=== PATIENT | male | born 1960 | race Caucasian/White ===

== ENCOUNTER 2024-07-09 08:52 | Emergency (ER) | payer OTHER, MEDICAID, SELFPAY ==
[2024-07-09 09:01] VITALS: BP 165/94; PULSE 101; RESP 18; TEMP 36.9; O2SAT 96; BMI 28.5
--- NOTE | 2024-07-09 09:04 | EDNOTE_ITS ---
Upper Respiratory Inf. RME/HPI General Chief Complaint: Dental/Oral/Throat Stated Complaint: throat pain, ROSS, cough Time Seen by Provider: 07/09/24 08:58 Arrival date/time: 07/09/24 08:52 64-year-old male presents emergency department complaint of sore throat, nasal congestion body aches and mild cough patient reports ongoing for last couple of days Limitations: no limitations Related Data Home Medications ?Medication ?Instructions ?Recorded ?Confirmed hydrochlorothiazide 25 mg tablet 1 tab PO DAILY 05/10/22 05/11/22 aspirin 81 mg capsule 81 mg PO DAILY 05/11/22 05/11/22 fexofenadine 180 mg tablet 1 tab PO DAILY PRN Allergy Symptoms 05/11/22 05/11/22 pantoprazole 40 mg tablet,delayed 1 tab PO DAILY 05/11/22 05/11/22 release propranolol 10 mg tablet 1 tab PO TID 05/11/22 05/11/22 simvastatin 20 mg tablet 1 tab PO DAILY 05/11/22 05/11/22 sucralfate 1 gram tablet 1 tab PO QID 05/11/22 05/11/22 Previous Rx's ?Medication ?Instructions ?Recorded potassium chloride 20 mEq oral 20 meq PO QDAY #10 ea 01/20/23 packet sulfamethoxazole 800 1 tab PO BID #14 tabs 01/14/24 mg-trimethoprim 160 mg tablet (Bactrim DS) amoxicillin 875 mg-potassium 1 tab PO BID 10 days #20 tabs 07/09/24 clavulanate 125 mg tablet ibuprofen 800 mg tablet 800 mg PO TID PRN pain #30 tabs 07/09/24 Allergies Allergy/AdvReac Type Severity Reaction Status Date / Time acetaminophen Allergy Mild Gastrointestinal Verified 05/11/22 09:40 Upset codeine Allergy Mild Gastrointestinal Verified 05/11/22 09:40 Upset Review of Systems Review of Systems Systems Reviewed: All systems reviewed, normal except as documented Constitutional Constitutional: Reports system reviewed and no additional complaints, except as documented, Denies fever(s) and Denies headache(s) Eyes Eyes: Reports system reviewed and no additional complaints, except as documented and Denies blurry vision ENT Ears, Nose, Mouth, and Throat: Reports system reviewed and no additional complaints, except as documented, Denies headache(s), Denies nasal congestion, Denies nasal discharge and Reports sore throat Cardiovascular Cardiovascular: Reports system reviewed and no additional complaints, except as documented, Denies chest pain and Denies dyspnea Respiratory Respiratory: Reports system reviewed and no additional complaints, except as documented, Denies chest congestion, Denies cough and Denies dyspnea Gastrointestinal Gastrointestinal: Reports system reviewed and no additional complaints, except as documented and Denies abdominal pain Integumentary/Breasts Skin/Breast: Reports system reviewed and no additional complaints, except as documented and Denies rash Neurologic Neurologic: Reports system reviewed and no additional complaints, except as documented, Reports as per HPI and Denies headache(s) Past Medical History Past Medical History NEUROLOGIC: Negative Neurological Disorders or Seizures CARDIAC: Positive Cardiac Disorders and Hypertension; Negative Congestive Heart Failure RESPIRATORY: Positive Asthma; Negative Chronic Obstructive Pulmonary Disease (COPD) GASTROINTESTINAL: Negative Gastrointestinal Disorders GENITOURINARY: Negative Genitourinary Disorders or Renal Disease MUSCULOSKELETAL: Negative Musculoskeletal Disorders ENDOCRINE: Negative Endocrine Disorders, Diabetes Mellitus Type 1 or Diabetes Mellitus Type 2 HEMATOLOGIC: Negative Blood Disorders OTHER HISTORY: Positive Chicken Pox; Negative Blood Transfusions, Anesthesia Reactions or Cancer Family History FAMILY HISTORY: Positive Family Cardiac Disorders Social History SMOKING STATUS: Former smoker ED Exam General Limitations: Present no limitations General appearance: Present alert and in no apparent distress Head Head exam: Present atraumatic, normocephalic and normal inspection Eye Eye exam: Present normal appearance, PERRL and EOMI; Absent conjunctival injection ENT ENT exam: Present mucous membranes moist Expanded ENT Exam Throat exam: Present tonsillar erythema and tonsillomegaly; Absent tonsillar exudate, R peritonsillar mass, L peritonsillar mass or muffled voice Neck Neck exam: Present normal inspection, full ROM and trachea midline Chest Chest inspection: Present normal inspection and symmetric chest wall rise Respiratory Respiratory exam: Present normal lung sounds bilaterally; Absent respiratory distress Cardiovascular Cardiovascular exam: Present regular rate, normal rhythm and normal heart sounds Abdominal Exam Abdominal exam: Present soft and normal bowel sounds; Absent distention, tenderness, guarding, rebound or rigidity Extremities Exam Extremities exam: Present normal inspection and full ROM Back Exam Back exam: Present normal inspection and full ROM Neurological Exam Neurological exam: Present alert, oriented X3 and CN II-XII intact Psychiatric Psychiatric exam: Present normal affect and normal mood Skin Skin exam: Present warm, dry, intact and normal color Course Quality Measures none Vital Signs Vital signs: Vital Signs Temperature 98.5 F 07/09/24 09:01 Pulse Rate 101 H 07/09/24 09:01 Respiratory Rate 18 07/09/24 09:01 Blood Pressure 165/94 H 07/09/24 09:01 Pulse Oximetry (%) 96 07/09/24 09:01 Oxygen Delivery Method Room Air 07/09/24 09:01 O2 saturation 96% room air within normal Upper Respiratory Infection MDM Narrative MDM Narrative:: 64-year-old male presents emergency department complaint of sore throat, nasal congestion body aches and mild cough patient reports ongoing for last couple of days On exam patient does not appear ill or toxic in no acute distress On exam symptoms consistent with pharyngitis patient does have tonsillar erythema and tonsillomegaly no trismus no hoarseness of voice no sores in the mouth Patient discharged home in no distress to follow-up with primary care doctor in the next 24 to 48 hours and for any worsening symptoms to return to the ER immediately Patient data External records reviewed:: [facility] previous records Clinical information provided by:: patient Social determinants that could affect healthcare access:: none Patient has the following chronic illnesses:: See history How is presenting disease/condition affected by chronic disease/condition?: uneffected by Evaluation data The following diagnostics were reviewed and interpreted by me:: other (specify) (N/A) Lab and/or radiology exams considered but not ordered:: Consider not ordered Interpretation Summary: N/A Medications / Prescriptions Medications or Prescriptions considered but not ordered:: Given Medication administrations:: Given Consultations Consultation(s) initiated? (list below): No Diagnosis Upper Respiratory Differential Diagnosis: upper respiratory infection, otitis media, sinusitis, viral infection, bronchitis and influenza Most likely diagnosis given after review of the tests above:: Pharyngitis Admission Indicated Admission indicated?: not indicated Admission Request Was there a request for admission?: No Disposition Plan Disposition Plan: Discharge Discharge Attestation Discharge Attestation: The patient and all family members were given an opportunity to ask questions and understood the discharge instructions. Discharge instructions specifically effects, indications for sooner follow up or return to the emergency department, and the expected course of current diagnosis. Patient condition: Stable Discharge Plan Plan Patient Disposition: HOME (Self Care) Disposition Comment: Stable Prescriptions/Referrals Prescriptions/Med Rec: New ibuprofen 800 mg tablet 800 mg PO TID PRN (Reason: pain) Qty: 30 0RF amoxicillin-pot clavulanate 875-125 mg tablet 1 tab PO BID 10 Days Qty: 20 0RF No Action hydrochlorothiazide 25 mg tablet 1 tab PO DAILY Patient Comments: TAKE 1 TABLET BY MOUTH IN THE MORNING sucralfate 1 gram tablet 1 tab PO QID Patient Comments: TAKE 1 TABLET BY MOUTH 4 TIMES DAILY fexofenadine 180 mg tablet 1 tab PO DAILY PRN (Reason: Allergy Symptoms) Patient Comments: TAKE 1 TABLET BY MOUTH ONCE DAILY NEEDED FOR ALLERGIES propranolol 10 mg tablet 1 tab PO TID Patient Comments: TAKE 1 TABLET BY MOUTH THREE TIMES DAILY pantoprazole 40 mg tablet,delayed release (DR/EC) 1 tab PO DAILY simvastatin 20 mg tablet 1 tab PO DAILY aspirin 81 mg Capsule 81 mg PO DAILY potassium chloride 20 mEq packet 20 meq PO QDAY Qty: 10 0RF sulfamethoxazole-trimethoprim [Bactrim DS] 800-160 mg tablet 1 tab PO BID Qty: 14 0RF Problem List Clinical Impression: Pharyngitis Patient/Caregiver Discharge Instructions Education Materials: Self-Care for Sore Throats Additional Instructions: Please follow up with your primary care doctor in the next 24-48hrs for any worsening symptoms return here immediately Print Language: Armenian Stand Alone Forms: Estelita Award Info., Work/School Release, Patient Portal Info Letter PA/COMMISSIONS COORDINATOR Supervising Physician PA/GALEN Supervising Physician: Dr Vega
== END 2024-07-09 09:10 | disposition home or self-care (01) ==
PROVIDERS: Emergency Provider Emergency Medicine; PCP Nurse Practitioner Family
DX: J02.9 Acute pharyngitis, unspecified (principal); Z87.891 Personal history of nicotine dependence
CPT/HCPCS: 99281

== ENCOUNTER → 2024-11-17 | Outpatient (CLI) | payer OTHER, MEDICAID, SELFPAY ==
--- NOTE | 2024-11-17 15:25 | XR_ITS ---
Examination: Wrist, left 3 views Technique: Wrist AP, oblique, lateral 3 views Date and time of exam: November 14, 2024 1535 hrs. Indications: Acute wrist 6 years ago and 2 weeks ago with wrist pain. Findings: No acute wrist fracture No dislocation Impression: No acute wrist fracture
--- NOTE | 2024-11-17 15:25 | XR_ITS ---
Examination: Hand, left 3 views Technique: Hand AP, oblique, lateral 3 views Date and time of exam: November 17, 2024 1533 hrs. Indications: Injury to the hand 2 days ago with second digit pain Findings: Moderate osteopenia Old fracture deformity middle phalanges second and third digits 4 mm chip fracture dorsal base distal phalanx second digit with mild offset Impression: Acute 4 mm chip fracture dorsal base distal phalanx second digit
== END | disposition home or self-care (01) ==
PROVIDERS: PCP Nurse Practitioner Gerontology; Referring Provider Nurse Practitioner Gerontology; Visit Provider Nurse Practitioner Gerontology
DX: S62.631A Displaced fracture of distal phalanx of left index finger, initial encounter for closed fracture (principal); S69.92XA Unspecified injury of left wrist, hand and finger(s), initial encounter; X58.XXXA Exposure to other specified factors, initial encounter
CPT/HCPCS: 73110; 73130

== ENCOUNTER 2024-11-28 06:02 | Emergency (ER) | payer OTHER, SELFPAY ==
[2024-11-28 06:05] VITALS: PULSE 72; RESP 18; O2SAT 98; BMI 28.8
[2024-11-28 06:13] VITALS: BP 138/85; PULSE 89; RESP 18; TEMP 36.8; O2SAT 95
--- NOTE | 2024-11-28 06:22 | PD.EDWOUND ---
ED Wound/Laceration-RME/HPI General Chief Complaint: Wound/Laceration Stated Complaint: ABRASIONS Time Seen by Provider: 11/28/24 06:08 Arrival date/time: 11/28/24 06:02 64-year-old male presents to the emergency department today states he accidentally cut his hand while at work today unknown last tetanus. There are no other associated symptoms or aggravating factors no other modifying factors, patient denies taking medication before coming to ER today Limitations: no limitations Related Data Home Medications ?Medication ?Instructions ?Recorded ?Confirmed hydrochlorothiazide 25 mg tablet 1 tab PO DAILY 05/10/22 05/11/22 aspirin 81 mg capsule 81 mg PO DAILY 05/11/22 05/11/22 fexofenadine 180 mg tablet 1 tab PO DAILY PRN Allergy Symptoms 05/11/22 05/11/22 pantoprazole 40 mg tablet,delayed 1 tab PO DAILY 05/11/22 05/11/22 release propranolol 10 mg tablet 1 tab PO TID 05/11/22 05/11/22 simvastatin 20 mg tablet 1 tab PO DAILY 05/11/22 05/11/22 sucralfate 1 gram tablet 1 tab PO QID 05/11/22 05/11/22 Previous Rx's ?Medication ?Instructions ?Recorded potassium chloride 20 mEq oral 20 meq PO QDAY #10 ea 01/20/23 packet sulfamethoxazole 800 1 tab PO BID #14 tabs 01/14/24 mg-trimethoprim 160 mg tablet (Bactrim DS) ibuprofen 800 mg tablet 800 mg PO TID PRN pain #30 tabs 07/09/24 bacitracin 500 unit/gram topical 1 applic topical TID 7 days #28.4 11/28/24 ointment grams ibuprofen 600 mg tablet 600 mg PO Q6H #30 tabs 11/28/24 Allergies Allergy/AdvReac Type Severity Reaction Status Date / Time acetaminophen Allergy Mild Dizziness Verified 11/28/24 06:04 codeine Allergy Mild Dizziness Verified 11/28/24 06:04 Review of Systems Review of Systems Systems Reviewed: All systems reviewed, normal except as documented Constitutional Constitutional: Reports system reviewed and no additional complaints, except as documented, Denies fever(s) and Denies headache(s) Eyes Eyes: Reports system reviewed and no additional complaints, except as documented and Denies blurry vision ENT Ears, Nose, Mouth, and Throat: Reports system reviewed and no additional complaints, except as documented, Denies headache(s), Denies nasal congestion and Denies nasal discharge Cardiovascular Cardiovascular: Reports system reviewed and no additional complaints, except as documented, Denies chest pain and Denies dyspnea Respiratory Respiratory: Reports system reviewed and no additional complaints, except as documented, Denies chest congestion, Denies cough and Denies dyspnea Gastrointestinal Gastrointestinal: Reports system reviewed and no additional complaints, except as documented and Denies abdominal pain Integumentary/Breasts Skin/Breast: Reports system reviewed and no additional complaints, except as documented, Denies rash and Reports wounds (Laceration left hand superficial x 2) Neurologic Neurologic: Reports system reviewed and no additional complaints, except as documented, Reports as per HPI and Denies headache(s) Past Medical History Past Medical History NEUROLOGIC: Negative Neurological Disorders or Seizures CARDIAC: Positive Cardiac Disorders and Hypertension; Negative Congestive Heart Failure RESPIRATORY: Positive Asthma; Negative Chronic Obstructive Pulmonary Disease (COPD) GASTROINTESTINAL: Negative Gastrointestinal Disorders GENITOURINARY: Negative Genitourinary Disorders or Renal Disease MUSCULOSKELETAL: Negative Musculoskeletal Disorders ENDOCRINE: Negative Endocrine Disorders, Diabetes Mellitus Type 1 or Diabetes Mellitus Type 2 HEMATOLOGIC: Negative Blood Disorders OTHER HISTORY: Positive Chicken Pox; Negative Blood Transfusions, Anesthesia Reactions or Cancer Family History FAMILY HISTORY: Positive Family Cardiac Disorders Social History SMOKING STATUS: Current some day smoker ED Exam General Limitations: Present no limitations General appearance: Present alert and in no apparent distress Head Head exam: Present atraumatic Eye Eye exam: Present normal appearance, PERRL and EOMI ENT ENT exam: Present normal exam, normal oropharynx and mucous membranes moist Neck Neck exam: Present normal inspection, full ROM and trachea midline Chest Chest inspection: Present normal inspection and symmetric chest wall rise Respiratory Respiratory exam: Present normal lung sounds bilaterally Cardiovascular Cardiovascular exam: Present regular rate, normal rhythm and normal heart sounds Abdominal Exam Abdominal exam: Present soft and normal bowel sounds Extremities Exam Extremities exam: Present normal inspection and full ROM Back Exam Back exam: Present normal inspection and full ROM Neurological Exam Neurological exam: Present alert, oriented X3 and CN II-XII intact Psychiatric Psychiatric exam: Present normal affect and normal mood Skin Skin exam: Present warm, dry and other (Superficial laceration x 2 left hand dorsal aspect) Course Quality Measures none Orders Category Date Time Status Wound Care NOW Care 11/28/24 06:19 Active TET,DIP/PERT AC (Adult)-Tdap [Boostrix Adult (Tdap) Med 11/28/24 06:19 Discontinued Vacc] 0.5 ml IMI .ONCE ONE Vital Signs Vital signs: Vital Signs Temperature 98.2 F 11/28/24 06:13 Pulse Rate 89 11/28/24 06:13 Respiratory Rate 18 11/28/24 06:13 Blood Pressure 138/85 H 11/28/24 06:13 Pulse Oximetry (%) 95 11/28/24 06:13 Oxygen Delivery Method Room Air 11/28/24 06:13 O2 saturation 95% room air within normal limits Wound / Laceration MDM Narrative MDM Narrative:: 64-year-old male presents to the emergency department today states he accidentally cut his hand while at work today unknown last tetanus. There are no other associated symptoms or aggravating factors no other modifying factors, patient denies taking medication before coming to ER today On exam patient has 2 superficial lacerations to the dorsal aspect of the left hand both are quite superficial did not require sutures On exam there is no evidence of tendon or ligamentous injury Wounds were irrigated dressings applied Tdap updated Patient discharged home with ibuprofen and bacitracin Patient struck to follow-up with Worker's Compensation provider for worsening symptoms return immediately Patient data External records reviewed:: [facility] previous records Clinical information provided by:: patient Social determinants that could affect healthcare access:: none Patient has the following chronic illnesses:: See history How is presenting disease/condition affected by chronic disease/condition?: uneffected by Evaluation data The following diagnostics were reviewed and interpreted by me:: other (specify) (N/A) Lab and/or radiology exams considered but not ordered:: Consider not ordered Interpretation Summary: N/A Medications / Prescriptions Medications or Prescriptions considered but not ordered:: Given Medication administrations:: Medication Administration History Discontinued Medications Diphtheria/Tetanus/Acell Pertussis (Diphth,Pertuss(Acell),Tet Vac 0.5 Ml Syr- Adult) 0.5 ml IMi .ONCE ONE Stop: 11/28/24 06:20 Given Consultations Consultation(s) initiated? (list below): No Diagnosis Wound Differential Diagnosis: laceration, abrasion and avulsion of skin Most likely diagnosis given after review of the tests above:: Laceration Admission Indicated Admission indicated?: not indicated Admission Request Was there a request for admission?: No Disposition Plan Disposition Plan: Discharge Discharge Attestation Discharge Attestation: The patient and all family members were given an opportunity to ask questions and understood the discharge instructions. Discharge instructions specifically effects, indications for sooner follow up or return to the emergency department, and the expected course of current diagnosis. Patient condition: Stable Discharge Plan Plan Patient Disposition: HOME (Self Care) Disposition Comment: Stable Prescriptions/Referrals Prescriptions/Med Rec: New bacitracin 500 unit/gram ointment 1 applic topical TID 7 Days Qty: 28.4 0RF ibuprofen 600 mg tablet 600 mg PO Q6H Qty: 30 0RF No Action hydrochlorothiazide 25 mg tablet 1 tab PO DAILY Patient Comments: TAKE 1 TABLET BY MOUTH IN THE MORNING sucralfate 1 gram tablet 1 tab PO QID Patient Comments: TAKE 1 TABLET BY MOUTH 4 TIMES DAILY fexofenadine 180 mg tablet 1 tab PO DAILY PRN (Reason: Allergy Symptoms) Patient Comments: TAKE 1 TABLET BY MOUTH ONCE DAILY NEEDED FOR ALLERGIES propranolol 10 mg tablet 1 tab PO TID Patient Comments: TAKE 1 TABLET BY MOUTH THREE TIMES DAILY pantoprazole 40 mg tablet,delayed release (DR/EC) 1 tab PO DAILY simvastatin 20 mg tablet 1 tab PO DAILY aspirin 81 mg Capsule 81 mg PO DAILY potassium chloride 20 mEq packet 20 meq PO QDAY Qty: 10 0RF sulfamethoxazole-trimethoprim [Bactrim DS] 800-160 mg tablet 1 tab PO BID Qty: 14 0RF ibuprofen 800 mg tablet 800 mg PO TID PRN (Reason: pain) Qty: 30 0RF Problem List Clinical Impression: Superficial laceration of left hand Patient/Caregiver Discharge Instructions Education Materials: ED Laceration: All Closures Additional Instructions: Please follow-up with Workmen's Compensation doctor as discussed for worsening symptoms return immediately Print Language: Indonesian Stand Alone Forms: Estelita Award Info., Patient Portal Info Letter Vaccines Vaccines Given During Stay: TDaP PA/SIDE SHOW ENTERTAINER Supervising Physician PA/SIDE SHOW ENTERTAINER Supervising Physician: Dr Vega
[2024-11-28] MEDS: DIPHTH,PERTUSS(ACELL),TET VAC 0.5 ML SYR- ADULT IMi (06:33)
== END 2024-11-28 06:50 | disposition home or self-care (01) ==
PROVIDERS: Emergency Provider Emergency Medicine; PCP Obstetrics & Gynecology
DX: S61.412A Laceration without foreign body of left hand, initial encounter (principal); Z23 Encounter for immunization
CPT/HCPCS: 90471; 90715; 99282

== ENCOUNTER 2025-01-05 07:36 | Emergency (ER) | payer OTHER, SELFPAY ==
[2025-01-05] VITALS (19 sets, daily range): BP systolic 125–161; BP diastolic 64–91; PULSE 75–96; RESP 13–23; TEMP 37–37.2; O2SAT 90–100; BMI 29.8
--- NOTE | 2025-01-05 09:25 | XR_ITS ---
Examination: Lumbar spine 3 views Technique one AP lateral, lateral lower lumbar spine 3 views Date and time: January 05, 2025 0951 hours INDICATIONS: Ground-level fall today with injury to lower back, lower back pain. FINDINGS: No acute lumbar fracture Slightly more prominent depression superior endplate L2 compared to the June 21, 2023 study Moderate disc narrowing L5-S1 No spondylolisthesis IMPRESSION: More prominent depression superior endplate L2 compared to the June 21, [address] scan lumbar spine without contrast follow-up to exclude mild fracture L2 vertebral body
--- NOTE | 2025-01-05 09:25 | XR_ITS ---
Examination: Shoulder,right, 3 views Technique: Shoulder AP internal rotation, AP external rotation, Y view shoulder, 3 views Exam date and time :January 05, 2025 0939 hours INDICATIONS: Patient fell today with injury to the shoulder, shoulder pain FINDINGS: No shoulder fracture or dislocation No AC joint separation Obliteration of the space between the humeral head and the acromion, seen with rotator cuff tear/arthropathy IMPRESSION: No acute fracture or shoulder dislocation
--- NOTE | 2025-01-05 09:39 | PD.EDADULT ---
ED General RME/HPI General Chief complaint: Extremity Injury, Upper Stated complaint: FALL Arrival date/time: 01/05/25 07:36 Limitations: no limitations RME / HPI RME / HPI narrative: DR. SIMMONS MAIN ED EVALUATION: 64 year old male presents to the Emergency Department [facility] with complaints of right shoulder pain, right arm, and lower back pain after he fell prior to arrival at work. 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 PMHx: Hypertension Social Hx: No tobacco, alcohol, or substance use. Related Data Home Medications ?Medication ?Instructions ?Recorded ?Confirmed hydrochlorothiazide 25 mg tablet 1 tab PO DAILY 05/10/22 05/11/22 aspirin 81 mg capsule 81 mg PO DAILY 05/11/22 05/11/22 fexofenadine 180 mg tablet 1 tab PO DAILY PRN Allergy Symptoms 05/11/22 05/11/22 pantoprazole 40 mg tablet,delayed 1 tab PO DAILY 05/11/22 05/11/22 release propranolol 10 mg tablet 1 tab PO TID 05/11/22 05/11/22 simvastatin 20 mg tablet 1 tab PO DAILY 05/11/22 05/11/22 sucralfate 1 gram tablet 1 tab PO QID 05/11/22 05/11/22 Previous Rx's ?Medication ?Instructions ?Recorded potassium chloride 20 mEq oral 20 meq PO QDAY #10 ea 01/20/23 packet sulfamethoxazole 800 1 tab PO BID #14 tabs 01/14/24 mg-trimethoprim 160 mg tablet (Bactrim DS) ibuprofen 800 mg tablet 800 mg PO TID PRN pain #30 tabs 07/09/24 ibuprofen 600 mg tablet 600 mg PO Q6H #30 tabs 11/28/24 ibuprofen 600 mg tablet 600 mg PO Q6H PRN pain #30 tabs 01/05/25 Allergies Allergy/AdvReac Type Severity Reaction Status Date / Time acetaminophen Allergy Mild Dizziness Verified 11/28/24 06:04 codeine Allergy Mild Dizziness Verified 11/28/24 06:04 Review of Systems Review of Systems Systems Reviewed: All systems reviewed, normal except as documented Past Medical History Past Medical History CARDIAC: Positive Cardiac Disorders and Hypertension RESPIRATORY: Positive Asthma OTHER HISTORY: Positive Chicken Pox Family History FAMILY HISTORY: Positive Family Cardiac Disorders Social History SMOKING STATUS: Never smoker SUBSTANCE USE: does not use ALCOHOL: Never ED Exam General Limitations: Present no limitations General appearance: Present alert and in no apparent distress Head Head exam: Present atraumatic, normocephalic and normal inspection Eye Eye exam: Present normal appearance, PERRL and EOMI ENT ENT exam: Present normal exam, normal oropharynx and mucous membranes moist Neck Neck exam: Present normal inspection, full ROM and trachea midline Chest Chest inspection: Present normal inspection and symmetric chest wall rise Respiratory Respiratory exam: Present normal lung sounds bilaterally Cardiovascular Cardiovascular exam: Present regular rate, normal rhythm and normal heart sounds Abdominal Exam Abdominal exam: Present soft and normal bowel sounds Extremities Exam Extremities exam: Present other Expanded Upper Extremity Exam Shoulder exam: Present tenderness (Right shoulder tenderness with some limited ROM due to pain) Arm exam: Present tenderness (Right bicep muscle tenderness and right humerus and deltoid tenderness with some limited ROM due to pain but can passively raise arm.) Back Exam Back exam: Present normal inspection and full ROM Neurological Exam Neurological exam: Present alert, oriented X3 and CN II-XII intact Psychiatric Psychiatric exam: Present normal affect and normal mood Skin Skin exam: Present warm, dry, intact and normal color Course Quality Measures none Orders Category Date Time Status sling [Splint / Immobilizer] STAT Care 01/05/25 13:12 Active XR lumbar spine 2-3V Stat Exams 01/05/25 09:25 Completed XR shoulder RT min 2V Stat Exams 01/05/25 09:25 Completed Ketorolac Inj [Toradol Inj] Med 01/05/25 09:25 Discontinued 30 mg IM X1 ONE Vital Signs Vital signs: Vital Signs Pulse Rate 96 01/05/25 08:11 Respiratory Rate 18 01/05/25 08:11 Blood Pressure 125/82 01/05/25 08:11 Pulse Oximetry (%) 95 01/05/25 08:11 Discharge Plan Plan Patient Disposition: HOME (Self Care) Discharge Disposition comment: FOLLOW UP WITH WORKERS COMP DOCTOR IN 2 DAYS Prescriptions/Referrals Prescriptions/Med Rec: New ibuprofen 600 mg tablet 600 mg PO Q6H MDD 4 PRN (Reason: pain) Qty: 30 0RF No Action hydrochlorothiazide 25 mg tablet 1 tab PO DAILY Patient Comments: TAKE 1 TABLET BY MOUTH IN THE MORNING sucralfate 1 gram tablet 1 tab PO QID Patient Comments: TAKE 1 TABLET BY MOUTH 4 TIMES DAILY fexofenadine 180 mg tablet 1 tab PO DAILY PRN (Reason: Allergy Symptoms) Patient Comments: TAKE 1 TABLET BY MOUTH ONCE DAILY NEEDED FOR ALLERGIES propranolol 10 mg tablet 1 tab PO TID Patient Comments: TAKE 1 TABLET BY MOUTH THREE TIMES DAILY pantoprazole 40 mg tablet,delayed release (DR/EC) 1 tab PO DAILY simvastatin 20 mg tablet 1 tab PO DAILY aspirin 81 mg Capsule 81 mg PO DAILY potassium chloride 20 mEq packet 20 meq PO QDAY Qty: 10 0RF sulfamethoxazole-trimethoprim [Bactrim DS] 800-160 mg tablet 1 tab PO BID Qty: 14 0RF ibuprofen 600 mg tablet 600 mg PO Q6H Qty: 30 0RF ibuprofen 800 mg tablet 800 mg PO TID PRN (Reason: pain) Qty: 30 0RF Referrals: Jennie Arceo NP [Primary Care Provider] - In 1 week Problem List Clinical Impression: Sprain of right shoulder, Lumbar back pain Patient/Caregiver Discharge Instructions Print Language: Algerian Stand Alone Forms: Estelita Award Info., Patient Portal Info Letter MDM Narrative [facility] hospital course: I, Laney Vance am scribing for and in the presence of Dr. Simmons. Clinical Information Provided by patient and EMS Medical Records Reviewed EMS Meds/Rx Considered, not Ordered None Labs/Rad/Tests considered, not Ordered None Chronic Illness/Social Conditions Add or document further as needed: Hypertension Imaging Radiology reports / interpretation(s): Procedure(s): XR shoulder RT min 2V Accession Number(s): [id number] cc: Chidi Simmons MD; Luis M Rocha MD; Jennie Arceo NP~ Examination: Shoulder,right, 3 views Technique: Shoulder AP internal rotation, AP external rotation, Y view shoulder, 3 views Exam date and time :January 05, 2025 0939 hours INDICATIONS: Patient fell today with injury to the shoulder, shoulder pain FINDINGS: No shoulder fracture or dislocation No AC joint separation Obliteration of the space between the humeral head and the acromion, seen with rotator cuff tear/arthropathy IMPRESSION: No acute fracture or shoulder dislocation Dictated By: Luis M Rocha MD Procedure(s): XR lumbar spine 2-3V Accession Number(s): [id number] cc: Chidi Simmons MD; Luis M Rocha MD; Jennie Arceo NP~ Examination: Lumbar spine 3 views Technique one AP lateral, lateral lower lumbar spine 3 views Date and time: January 05, 2025 0951 hours INDICATIONS: Ground-level fall today with injury to lower back, lower back pain. FINDINGS: No acute lumbar fracture Slightly more prominent depression superior endplate L2 compared to the June 21, 2023 study Moderate disc narrowing L5-S1 No spondylolisthesis IMPRESSION: More prominent depression superior endplate L2 compared to the June 21, [address] scan lumbar spine without contrast follow-up to exclude mild fracture L2 vertebral body Dictated By: Luis M Rocha MD Medication Administration(s) Medication Administration History Discontinued Medications Ketorolac Tromethamine (Ketorolac Inj 60 Mg/2 Ml Vial) 30 mg IM X1 ONE Stop: 01/05/25 09:26 Last Admin: 01/05/25 09:52 Dose: 30 mg Documented By: MARIELENA Diagnosis Differential diagnosis: shoulder fracture, shoulder dislocation, lumbar fracture Most likely dx, and/or detailed dx discussion: Sprain of right shoulder Lumbar back pain Dispositon Disposition: Discharge Home
[2025-01-05] MEDS: KETOROLAC INJ 60 MG/2 ML VIAL 30 MG IM (09:52)
== END 2025-01-05 14:30 | disposition home or self-care (01) ==
PROVIDERS: Emergency Provider Family Medicine; PCP Nurse Practitioner Family
DX: S43.401A Unspecified sprain of right shoulder joint, initial encounter (principal); M54.50 Low back pain, unspecified; W01.0XXA Fall on same level from slipping, tripping and stumbling without subsequent striking against object, initial encounter; Y99.0 Civilian activity done for income or pay
CPT/HCPCS: 72100; 73030; 96372; 99283; A4565; J1885